=== PATIENT | male | born 2000 | race Caucasian/White ===

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

== ENCOUNTER 2021-03-05 11:46 | Emergency (ER) | payer MEDICAID ==
[2021-03-05 12:16] VITALS: BP 138/73; PULSE 64
--- NOTE | 2021-03-05 12:46 | EDM.PDOC ---
ED HPI GENERAL MEDICAL PROBLEM - General Chief Complaint: Chest Pain Stated Complaint: FELL, CHEST WALL PAIN Time Seen by Provider: 03/05/21 12:40 Source of Information: Reports: Patient, RN Notes Reviewed History Limitations: Reports: No Limitations - History of Present Illness INITIAL COMMENTS - FREE TEXT/NARRATIVE: 20-year-old gentleman presents emergency department today following a fall at home, he states he was in the shower yesterday he was working taking a shower and he believes he may have fell he does not recall hitting his head states he was on floor the bathroom for approximately 7 hours before he was found by family member does have a bruise over his right chest area which is very tender to the touch. He does not recall any events fall was unwitnessed Right Clavicle Pain Score (Numeric/FACES): 8 - Related Data Allergies Allergy/AdvReac Type Severity Reaction Status Date / Time amoxicillin Allergy Hives Verified 03/05/21 12:23 Home Meds: Home Meds NK [No Known Home Meds] 03/05/21 [History] Past Medical History Musculoskeletal History: Reports: Fracture Other Musculoskeletal History: both arms Psychiatric History: Reports: ADHD - Infectious Disease History Infectious Disease History: Reports: None Social & Family History - Tobacco Use Tobacco Use Status *Q: Never Tobacco User Years of Tobacco use: 4 Packs/Tins Daily: 1.5 - Caffeine Use Caffeine Use: Reports: Soda - Recreational Drug Use Recreational Drug Use: No ED ROS GENERAL - Review of Systems Review Of Systems: See Below Constitutional: Reports: No Symptoms HEENT: Reports: No Symptoms Respiratory: Reports: No Symptoms Cardiovascular: Reports: Chest Pain GI/Abdominal: Reports: No Symptoms Skin: Reports: Bruising Neurological: Reports: No Symptoms ED EXAM, GENERAL - Physical Exam Exam: See Below Free Text/Narrative:: General: Male, not in any distress, alert and oriented x3 HEENT: head is atraumatic normocephalic, eyes pupils equal round reactive to light, sclera clear no conjunctivitis appreciated. Ears tympanic membranes clear and bhardwaj landmarks and light reflex are present bilaterally canals are clear. Nose no septal deviation, nares are clear, no blood present. Mouth mucosa is moist and pink no erythema or exudate noted in soft palate, tongue is midline uvula is midline, dentition is intact. Neck: Supple no thyromegaly no tracheal deviation. Nodes: Cervical nodes subclavicular nodes nontender no palpable lymphadenopathy noted. Lungs: clear to auscultation bilaterally with symmetrical respirations, no adventitious noise appreciated. CV: Regular rate and rhythm S1 and S2 appreciated no murmurs rubs or gallops noted. Chest bruising over the clavicle area anterior superior chest, very tender to the touch Abdomen: Soft, nontender, no palpable masses or organomegaly appreciated, no distention no guarding bowel sounds are present, [scars ]. Neuro: Cranial nerves II test with pupillary light reflex 4 mm to 2 mm bilaterally, CN III test pupillary constriction, lid elevation and eye abduction bilaterally, CN IV downward movement of eyes bilaterally, CN V good jaw movement, CN lateral deviation of the eyes bilaterally to finger movement, CN VII symmetrical smile shows teeth without difficulty, CN VIII pass finger rub to ears bilaterally, CN IX adequate voice and tone, CN X adequate voice and tone no difficulty swallowing, CN XI can shrug shoulders without difficulty, CN XII can stick tongue out without difficulty, cranial nerves II to XII intact as tested, Skin: Warm and dry, intact Extremities: No lower extremity edema appreciated, pedal pulse is +2. #1 Interpretation EKG Date: 03/05/21 Time: 12:53 Rhythm: NSR Hawi: Normal P-Wave: Present QRS: Normal ST-T: Normal QT: Normal Comparison: NA - No Prior EKG Course - Vital Signs Last Recorded V/S: Last Vital Signs Temp 98.9 F 03/05/21 12:38 Pulse 64 03/05/21 12:38 Resp 14 03/05/21 12:38 BP 138/73 03/05/21 12:38 Pulse Ox 100 03/05/21 12:38 - Orders/Labs/Meds Orders: Active Orders 24 hr Category Date Time Status EKG Documentation Completion [RC] ASDIRECTED Care 03/05/21 12:44 Active EKG 12 Lead [EK] Stat Ther 03/05/21 12:44 Ordered Labs: Laboratory Tests 03/05/21 03/05/21 03/05/21 Range/Units 12:54 12:54 12:54 WBC 5.5 (4.5-11.0) K/uL RBC 5.86 (4.30-5.90) M/uL Hgb 16.3 H (12.0-15.0) g/dL Hct 48.3 (40.0-54.0) % MCV 82 (80-98) fL MCH 28 (27-31) pg MCHC 34 (32-36) % Plt Count 235 (150-400) K/uL Neut % (Auto) 55 (36-66) % Lymph % (Auto) 31 (24-44) % Jenkins % (Auto) 11 H (2-6) % Eos % (Auto) 2 (2-4) % Baso % (Auto) 1 (0-1) % Sodium 143 (140-148) mmol/L Potassium 4.1 (3.6-5.2) mmol/L Chloride 102 (100-108) mmol/L Carbon Dioxide 30 (21-32) mmol/L Anion Gap 11.0 (5.0-14.0) mmol/L BUN 14 (7-18) mg/dL Creatinine 1.1 (0.8-1.3) mg/dL Est Cr Clr Drug Dosing 96.67 mL/min Estimated GFR (MDRD) > 60 (>60) Glucose 124 H (74-106) mg/dL Calcium 9.9 (8.5-10.1) mg/dL Creatine Kinase 232 (39-308) U/L Departure - Departure Time of Disposition: 13:56 Disposition: Home, Self-Care 01 Condition: Fair Clinical Impression: Syncope Qualifiers: Syncope type: unspecified Qualified Code(s): R55 - Syncope and collapse Referrals: PCP,None [Primary Care Provider] - Forms: ED Department Discharge Additional Instructions: Please followup with your primary care provider in 3-5 days if not better, please call return to the emergency department with worsening of symptoms. Sepsis Event Note (ED) - Evaluation Sepsis Screening Result: No Definite Risk - Focused Exam Vital Signs: Vital Signs Temp Pulse Resp BP Pulse Ox 03/05/21 12:38 98.9 F 64 14 138/73 100 03/05/21 12:21 98.9 F 64 14 138/73 100 03/05/21 12:15 98.9 F 64 14 138/73 100 - My Orders Last 24 Hours: My Active Orders 03/05/21 12:44 EKG Documentation Completion [RC] ASDIRECTED EKG 12 Lead [EK] Stat - Assessment/Plan Last 24 Hours: My Active Orders 03/05/21 12:44 EKG Documentation Completion [RC] ASDIRECTED EKG 12 Lead [EK] Stat Plan: Assessment Acuity = acute Site and laterality = syncopal event Etiology = unknown Manifestations = chest contusion Location of injury = Home Lab values = CBC BMP CT of the head EKG chest x-ray all within normal limits Plan Follow-up primary care as needed This note was dictated using [employer] voice recognition software please call with any questions on syntax or grammar.
--- NOTE | 2021-03-05 13:43 | CT ---
Head wo Cont CLINICAL HISTORY: Fall, LOC COMPARISON: None TECHNIQUE: Transverse scans were obtained from the base of the skull through the vertex without IV contrast on a multislice, multidetector CT scanner. Auto dosage reduction and iterative reconstruction techniques employed. FINDINGS: No focal abnormal parenchymal density is identified. There is no mass effect, hemorrhage, or extraaxial collection. The basal cisterns and sulci over the convexities are normal. The ventricles are asymmetrical with slight enlargement of the right lateral ventricle. There is a leftward shift of the midline to the left by approximately 4 mm. This may be congenital variant. Unilateral hydronephrosis is felt less likely. IMPRESSION: No acute intracranial process Relative right lateral ventricle enlargement with a slight leftward shift of the midline. 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
--- NOTE | 2021-03-05 13:45 | CR ---
CHEST: Portable 03/05/2021 at 1301 p.m. CLINICAL HISTORY:Right chest pain COMPARISON:None FINDINGS: The heart size, pulmonary vascularity and hilar structures are normal. No infiltrate effusion or pneumothorax is seen. IMPRESSION: No acute cardiopulmonary process.
== END 2021-03-05 14:15 | disposition home or self-care (01) ==
LOC: JP.ED 11:46
DX: S20.211A Contusion of right front wall of thorax, initial encounter (principal); R55 Syncope and collapse; W18.2XXA Fall in (into) shower or empty bathtub, initial encounter; Z88.0 Allergy status to penicillin; Y92.009 Unspecified place in unspecified non-institutional (private) residence as the place of occurrence of the external cause
CPT/HCPCS: 36415; 70450; 70450-26; 71045; 71045-26; 80048; 82550; 85025; 93005; 99284-25

== ENCOUNTER 2021-03-11 10:45 | Emergency (ER) | payer MEDICAID ==
[2021-03-11 11:15] VITALS: BP 132/74; PULSE 105
[2021-03-11] MEDS ORDERED: Ketorolac 30 MG/ML SDV IVPUSH ONE (11:26)
[2021-03-11] MEDS ORDERED: LORazepam 2 MG/ML SDV IVPUSH ONE (11:27)
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
[2021-03-11] MEDS ORDERED: Iopamidol 612 MG/ML 100 ML Bottle IV PRN (11:48)
[2021-03-11] MEDS ORDERED: Sodium Chloride 0.9% 75 ML IV SCH (12:00)
[2021-03-11] MEDS ORDERED: Sodium Chloride 0.9% 1,000 ML IV SCH (12:30)
--- NOTE | 2021-03-11 13:08 | CT ---
Head wo Cont CLINICAL HISTORY: Trauma COMPARISON: 03/05/2021 TECHNIQUE: Transverse scans were obtained from the base of the skull through the vertex without IV contrast on a multislice, multidetector CT scanner. Auto dosage reduction and iterative reconstruction techniques employed. FINDINGS: No focal abnormal parenchymal densities are identified. There is no mass effect, hemorrhage, or extraaxial collection. The basal cisterns and sulci over the convexities are normal. The ventricles are asymmetric but similar to the prior study. There is some enlargement of the right lateral ventricle. This is likely congenital. IMPRESSION: No acute intracranial process Asymmetric right lateral ventricular enlargement is unchanged from prior study and likely congenital
--- NOTE | 2021-03-11 13:34 | CT ---
Chest w Cont CLINICAL HISTORY: Trauma TECHNIQUE: Axial scans were obtained from the thoracic inlet to the lung bases following IV infusion of iodinated contrast. Auto dosage reduction and iterative reconstructrion techniques employed. COMPARISON: None. FINDINGS: Lung window images show some breathing motion. No pulmonary mass or infiltrate is seen. There is no pneumothorax. The sternum is segmented. In the lower half of the sternal body there are multiple ossific centers. Xiphoid is intact. There is no peristernal swelling. This is likely congenital or possibly due to old surgery. There are multiple small Schmorl's nodes at the thoracic vertebral endplates Mediastinal window images show no mass or suspicious lymphadenopathy. No pleural effusion is seen. Aorta has a normal contour. Scans into the upper abdomen show no mass or adenopathy. IMPRESSION: No mass, infiltrate or suspicious adenopathy No acute fracture is seen Segmented sternum. This may be congenital or due to previous surgery
--- NOTE | 2021-03-11 13:35 | CR ---
Hip Min 2V or 3V w Pelvis Lt CLINICAL HISTORY: Trauma FINDINGS: No fracture or osseous lesion is identified. Articular surfaces are smooth. IMPRESSION: Negative
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
== END 2021-03-11 14:08 | disposition home or self-care (01) ==
LOC: JP.ED 10:45
DX: S20.212A Contusion of left front wall of thorax, initial encounter (principal); S20.222A Contusion of left back wall of thorax, initial encounter; S70.02XA Contusion of left hip, initial encounter; S90.02XA Contusion of left ankle, initial encounter; Z88.0 Allergy status to penicillin; Y04.0XXA Assault by unarmed brawl or fight, initial encounter
CPT/HCPCS: 36415; 70450; 71260; 73502; 73610; 80053; 80305; 80307; 81001; 82550; 83605; 85025; 96374; 96375; 99284; J1885; J2060; J7030; Q9967

== ENCOUNTER 2021-04-14 09:57 | Emergency (ER) | payer OTHER, MEDICAID ==
[2021-04-14 10:02] VITALS: BP 134/84; PULSE 92
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
== END 2021-04-14 10:47 | disposition home or self-care (01) ==
LOC: JP.ED 09:57
DX: S80.11XA Contusion of right lower leg, initial encounter (principal); Z88.0 Allergy status to penicillin; Z72.0 Tobacco use; V48.9XXA Unspecified car occupant injured in noncollision transport accident in traffic accident, initial encounter
CPT/HCPCS: 99284

== ENCOUNTER 2021-05-01 17:18 | Emergency (ER) | payer MEDICAID ==
[2021-05-01 17:31] VITALS: BP 147/57; PULSE 78
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
[2021-05-01] MEDS ORDERED: Sertraline 50 MG Tab PO ONE (18:51)
[2021-05-01] MEDS ORDERED: Mirtazapine 15 MG Tab PO ONE (18:51)
[2021-05-01] MEDS ORDERED: hydrOXYzine HCl 25 MG Tab PO ONE (18:51)
== END 2021-05-01 19:23 | disposition home or self-care (01) ==
LOC: JP.ED 17:18
DX: T22.112A Burn of first degree of left forearm, initial encounter (principal); S60.511A Abrasion of right hand, initial encounter; L08.9 Local infection of the skin and subcutaneous tissue, unspecified; F19.20 Other psychoactive substance dependence, uncomplicated; G47.9 Sleep disorder, unspecified; F51.4 Sleep terrors [night terrors]; F32.9 Major depressive disorder, single episode, unspecified; Z88.0 Allergy status to penicillin; Z72.0 Tobacco use; X08.8XXA Exposure to other specified smoke, fire and flames, initial encounter
CPT/HCPCS: 99284; A9270

== ENCOUNTER 2022-05-19 16:30 | Emergency (ER) | payer MEDICAID ==
[2022-05-19 16:42] VITALS: BP 115/75; PULSE 68
[2022-05-19] MEDS ORDERED: Famotidine 20 MG Tab PO ONE (17:07)
[2022-05-19] MEDS ORDERED: Sucralfate Suspension 1 GM/10 ML Cup PO ONE (17:07)
== END 2022-05-19 18:26 ==
LOC: JP.ED 16:30
DX: K29.70 Gastritis, unspecified, without bleeding (principal); K59.00 Constipation, unspecified; F17.210 Nicotine dependence, cigarettes, uncomplicated; Z88.0 Allergy status to penicillin
CPT/HCPCS: 74019; 99282; 99284; A9270

== ENCOUNTER 2024-06-18 10:32 | Emergency (ER) | payer MEDICAID ==
[2024-06-18 11:21] LABS: BASOPHILS ABSOLUTE AUTO 0.04 K/uL (0.00-0.10); BASOPHILS PERCENT AUTO 0.7 % (0.1-1.3); EOSINOPHILS ABSOLUTE AUTO 0.09 K/uL (0.00-0.40); EOSINOPHILS PERCENT AUTO 1.6 % (0.0-5.4); HEMATOCRIT 42.3 % (38.4-49.7); HEMOGLOBIN 14.6 g/dL (12.9-16.9); IMMATURE GRAN PERCENT AUTO 0.2 % (0.0-0.7); LYMPHOCYTES ABSOLUTE AUTO 1.74 K/uL (0.8-3.3); LYMPHOCYTES PERCENT AUTO 31.9 % (11.4-47.7); MEAN CORPUSCULAR HEMOGLOBIN 28.2 pg (31.6-35.5); MEAN CORPUSCULAR HGB CONC 34.5 g/dL (31.6-35.5); MEAN CORPUSCULAR VOLUME 81.7 fL (81.4-99.0); MONOCYTES ABSOLUTE AUTO 0.59 K/uL (0.20-0.90); MONOCYTES PERCENT AUTO 10.8 % (3.3-12.6); NEUTROPHILS ABSOLUTE AUTO 2.99 K/uL (1.0-7.6); NEUTROPHILS PERCENT AUTO 54.8 % (40.0-78.1); PLATELET COUNT,PLT 220 K/uL (130-375); RED BLOOD CELL COUNT 5.18 M/uL (4.14-5.76); WHITE BLOOD CELL COUNT,WBC 5.5 K/uL (3.2-11.0)
[2024-06-18 11:24] LABS: IMMATURE GRAN ABSOLUTE AUTO 0.01 K/uL (0.00-0.23)
[2024-06-18 11:46] LABS: A/G RATIO 1.3 (1.2-2.2); ALANINE AMINOTRANSFERASE,ALT 24 U/L (12-78); ALBUMIN 3.9 g/dL (3.4-5.0); ALKALINE PHOSPHATASE 105 U/L (46-116); ASPARTATE AMNIOTRANSFERASE,AST 13 U/L (15-37); BILIRUBIN TOTAL 0.3 mg/dL (0.2-1.0); BLOOD UREA NITROGEN,BUN 11 mg/dL (7-18); CALCIUM 8.9 mg/dL (8.5-10.1); CARBON DIOXIDE,CO2 39 mmol/L (21-32); CHLORIDE,CL 100 mmol/L (100-108); CREATININE 1.2 mg/dL (0.8-1.3); EST CRCL DRUG DOSING (CG) 98.85 mL/min; ESTIMATED GFR 87 mL/min (>60); GLUCOSE RANDOM 112 mg/dL (74-106); POTASSIUM,K 3.3 mmol/L (3.6-5.2); SODIUM,NA 142 mmol/L (140-148)
[2024-06-18 11:50] LABS: ANION GAP 6.3 mmol/L (5.0-14.0)
[2024-06-18 12:27] LABS: APPEARANCE,URINE CLEAR (CLEAR); BILIRUBIN,URINE NEGATIVE (NEGATIVE); COLOR,URINE YELLOW (YELLOW); GLUCOSE,URINE NEGATIVE (NEGATIVE); KETONES,URINE NEGATIVE (NEGATIVE); LEUKOCYTE ESTERASE,URINE NEGATIVE (NEGATIVE); NITRITE,URINE NEGATIVE (NEGATIVE); OCCULT BLOOD,URINE NEGATIVE (NEGATIVE); PH,URINE >= 9.0 (5.0-8.0); PROTEIN,URINE 30 mg/dL (NEGATIVE); UROBILINOGEN,URINE 0.2 EU/dL (0.2-1.0)
[2024-06-18 12:39] LABS: AMORPHOUS SEDIMENT,URINE NOT SEEN; BACTERIA,URINE NOT SEEN; EPITHELIAL CELLS,URINE FEW; MUCUS,URINE NOT SEEN; RBC,URINE 0-5 (0-5); WBC,URINE 0-5 (0-5)
[2024-06-18 12:40] LABS: AMPHETAMINES SCREEN, URINE NEGATIVE (NEGATIVE); BARBITURATE SCREEN,URINE NEGATIVE (NEGATIVE); BENZODIAZEPINES SCREEN,URINE NEGATIVE (NEGATIVE); METHADONE SCREEN, URINE NEGATIVE (NEGATIVE); METHAMPHETAMINES SCREEN, URINE PRESUMPTIVE POSITIVE (NEGATIVE); OXYCODONE SCREEN,URINE NEGATIVE (NEGATIVE); PROPOXYPHENE SCREEN,URINE NEGATIVE (NEGATIVE); THC SCREEN,URINE 50 NG/ML NEGATIVE (NEGATIVE)
[2024-06-18 20:10] VITALS: BP 97/64; PULSE 93
== END 2024-06-18 20:30 ==
LOC: JP.ED 10:32
DX: F15.20 Other stimulant dependence, uncomplicated (principal); R45.851 Suicidal ideations; H60.12 Cellulitis of left external ear; F17.210 Nicotine dependence, cigarettes, uncomplicated; Z88.0 Allergy status to penicillin
CPT/HCPCS: 36415; 80053; 80305-QW; 80307; 81001; 85025; 99285